=== PATIENT | male | born 1980 | race American Indian/Alaskan Native ===

== ENCOUNTER 2017-01-07 11:17 | Emergency (ER) | payer OTHER ==
[2017-01-07] MEDS ORDERED: Diphtheria,Pertussis(Acell),Tetanus Vaccine 0.5 ML Syringe IM ONE (11:31)
[2017-01-07] MEDS ORDERED: cefTRIAXone 1,000 MG in Lidocaine 1% 4 ML IM ONE (11:31)
--- NOTE | 2017-01-07 11:34 | EDM.PDOC ---
ED HPI GENERAL MEDICAL PROBLEM - General Stated Complaint: SMASHED THUNB Time Seen by Provider: 01/07/17 11:32 Source of Information: Reports: Patient - History of Present Illness INITIAL COMMENTS - FREE TEXT/NARRATIVE: HISTORY AND PHYSICAL: History of present illness: [] Patient was at work using a "hydraulic tool" and smashed his left thumb, it appears to have a distal amputation with disruption of the nailbed Patient states it is nonpainful 0/10 Open lesion distal thumb with disruption/avulsion of nail bed otherwise entire limb is neurovascularly intact, skin is macerated with 2 cm V-shaped lesion on medial border No fever nausea vomiting chills sweats Review of systems: As per history of present illness and below otherwise all systems reviewed and negative. Past medical history: As per history of present illness and as reviewed below otherwise noncontributory. Surgical history: As per history of present illness and as reviewed below otherwise noncontributory. Social history: No reported history of drug or alcohol abuse. Family history: As per history of present illness and as reviewed below otherwise noncontributory. Physical exam: HEENT: Atraumatic, normocephalic, pupils reactive, negative for conjunctival pallor or scleral icterus, mucous membranes moist, throat clear, neck supple, nontender, trachea midline. Lungs: Clear to auscultation, breath sounds equal bilaterally, chest nontender. Heart: S1S2, regular, negative for clicks, rubs, or JVD. Abdomen: Soft, nondistended, nontender. Negative for masses or hepatosplenomegaly. Negative for costovertebral tenderness. Pelvis: Stable nontender. Genitourinary: Deferred. Rectal: Deferred. Extremities: Atraumatic, negative for cords or calf pain. Neurovascular unremarkable. Neuro: Awake, alert, oriented. Cranial nerves II through XII unremarkable. Cerebellum unremarkable. Motor and sensory unremarkable throughout. Exam nonfocal. Left hand: As per history of present illness unaffected above the wrist Diagnostics: [] X-ray left thumb Therapeutics: [] T. dap Rocephin 1 g IM Thumb nail removed after digital block no complication no complaint #7 4-0 Ethilon interrupted #2 4-0 Vicryl interrupted Keflex 500 mg by mouth twice a day #20 no refill Bacitracin, Telfa, splint, tube dressing Discussed with Dr. KSENIA DELAROSA, hand specialist, will follow in clinic Wednesday or Wednesday appointment will be arranged for the patient Impression: [] Distal tuft fracture left thumb,open 2.5 cm laceration Definitive disposition and diagnosis as appropriate pending reevaluation and review of above. Left Hand Pain Score (Numeric/FACES): 6 - Related Data Allergies Allergy/AdvReac Type Severity Reaction Status Date / Time No Known Allergies Allergy Verified 01/07/17 11:50 Home Meds: Home Meds Indomethacin PRN 01/07/17 [History] ED ROS GENERAL - Review of Systems Review Of Systems: ROS reveals no pertinent complaints other than HPI. ED EXAM, GENERAL - Physical Exam Exam: See Below Course - Vital Signs Last Recorded V/S: Last Vital Signs Temp 36.8 C 01/07/17 11:32 Pulse 97 01/07/17 11:32 Resp 16 01/07/17 11:32 BP 110/68 01/07/17 11:32 Pulse Ox 97 01/07/17 11:32 - Orders/Labs/Meds Orders: Active Orders 24 hr Category Date Time Status Vaccines to be Administered [RC] PER UNIT ROUTINE Care 01/07/17 11:32 Active Meds: Medications Discontinued Medications Generic Name Dose Route Start Last Admin Trade Name Freq PRN Reason Stop Dose Admin Bacitracin 1 dose 01/07/17 12:33 Bacitracin Oint 1 Gm TOP 01/07/17 12:34 ONETIME ONE Diphtheria/Tetanus/Acell Pertussis 0.5 ml 01/07/17 11:31 01/07/17 12:01 Adacel IM 01/07/17 11:32 0.5 ml .ONCE ONE Administration Ceftriaxone Sodium 1,000 mg/ 4 mls @ 4 mls/sec 01/07/17 11:31 01/07/17 12:01 Lidocaine HCl IM 01/07/17 11:32 4 mls/sec ONETIME ONE Administration Lidocaine HCl 20 ml 01/07/17 12:25 01/07/17 12:32 Xylocaine 1% INJECT 01/07/17 12:26 20 ml ONETIME ONE Administration Departure - Departure Time of Disposition: 13:04 Disposition: Home, Self-Care 01 Condition: good Clinical Impression: Phalanx, hand fracture, open - Discharge Information Referrals: PCP,None [Primary Care Provider] - Additional Instructions: Standard wound care as discussed Return if fever nausea vomiting chills sweats redness warmth or pus drainage from the wound Antibiotics as prescribed Pain medication as needed Continue using splint for protection of the thumb and comfort Bacitracin, Telfa, dressing change as needed if rapid should dressing become soiled or bleed through, otherwise leave initial dressing on for [address] Deanna Flores md on Wednesday or Wednesday, appointment time will be arranged for you today by ER nursing staff Work restriction light right hand duty only [facility] - [facility]astic Surgery Professional [address], [address] [place] [address] The following information is given to patients seen in the emergency department who are being discharged to home. This information is to outline your options for follow-up care. We provide all patients seen in our emergency department with a follow-up referral. The need for follow-up, as well as the timing and circumstances, are variable depending upon the specifics of your emergency department visit. If you don't have a primary care physician on staff, we will provide you with a referral. We always advise you to contact your personal physician following an emergency department visit to inform them of the circumstance of the visit and for follow-up with them and/or the need for any referrals to a consulting specialist. The emergency department will also refer you to a specialist when appropriate. This referral assures that you have the opportunity for follow-up care with a specialist. All of these measure are taken in an effort to provide you with optimal care, which includes your follow-up. Under all circumstances we always encourage you to contact your private physician who remains a resource for coordinating your care. When calling for follow-up care, please make the office aware that this follow-up is from your recent emergency room visit. If for any reason you are refused follow-up, please contact the [facility] emergency department at and asked to speak to the emergency department charge nurse. - My Orders Last 24 Hours: My Active Orders 01/07/17 11:32 Vaccines to be Administered [RC] PER UNIT ROUTINE - Assessment/Plan Last 24 Hours: My Active Orders 01/07/17 11:32 Vaccines to be Administered [RC] PER UNIT ROUTINE
--- NOTE | 2017-01-07 12:12 | CR ---
EXAMINATION: Left thumb HISTORY: Pain COMPARISON: None TECHNIQUE: 3 views FINDINGS/IMPRESSION: There is a partial amputation through the distal aspect of the tuft of the dist al first digit with an overlying soft tissue defect. The remaining osseous structures and joint spac es appear intact. Bone mineralization is normal.
[2017-01-07] MEDS ORDERED: Lidocaine 1% 20 ML MDV INJECT ONE (12:25)
[2017-01-07] MEDS ORDERED: Bacitracin Oint 1 GM U/D Packet TOP ONE (12:33)
== END 2017-01-07 13:28 | disposition home or self-care (01) ==
LOC: MW.ED 11:17
PROC: 0HBQXZZ Excision of Finger Nail, External Approach (ICD-10-PCS; principal; 2017-01-07)
DX: S68.522A Partial traumatic transphalangeal amputation of left thumb, initial encounter (principal); W23.0XXA Caught, crushed, jammed, or pinched between moving objects, initial encounter; Y92.69 Other specified industrial and construction area as the place of occurrence of the external cause; Y99.0 Civilian activity done for income or pay; Z23 Encounter for immunization
CPT/HCPCS: 11750; 73140; 90471; 90715; 99283; J0696